=== PATIENT | male | born 1975 | race Caucasian/White ===

== ENCOUNTER 2024-08-09 14:21 | Emergency (ER) | payer SELFPAY ==
[~2024-08-09] VITALS: Ht 172.7 cm; Wt 72.6 kg
[2024-08-09] MEDS ORDERED: IBUPROFEN 800 MG TABLET ONE (15:13)
[2024-08-09] MEDS ORDERED: AMOXICILLIN-CLAVUL 875-125MG TABLET ONE (15:13)
[2024-08-09] MEDS ORDERED: TDAP DIPH,PERTUSS,TET VAC/PF 0.5 ML DISP.SYRIN IM ONE (15:14)
[2024-08-09] MEDS: TDAP DIPH,PERTUSS,TET VAC/PF 0.5 ML DISP.SYRIN IM ONE (15:20)
[2024-08-09] MEDS: AMOXICILLIN-CLAVUL 875-125MG TABLET PO ONE (15:20)
[2024-08-09] MEDS: IBUPROFEN 800 MG TABLET PO ONE (15:21)
[2024-08-09] MEDS ORDERED: AMOX-430 PO (15:57)
[2024-08-09] MEDS ORDERED: HYDR-3972 PO (16:04)
[2024-08-09 16:13] VITALS: BP 151/90; O2SAT 98
== END 2024-08-09 16:13 | disposition home or self-care (01) ==
LOC: ER 14:40
DX: S81.851A Open bite, right lower leg, initial encounter (principal); W64.XXXA Exposure to other animate mechanical forces, initial encounter; Y93.89 Activity, other specified; Y92.89 Other specified places as the place of occurrence of the external cause; Y99.8 Other external cause status
CPT/HCPCS: 73560; 90715; A4606; A4663